=== PATIENT | male | born 1955 | race Caucasian/White ===

== ENCOUNTER 2019-08-20 08:50 | Outpatient (CLI) | payer MEDICARE, OTHER, SELFPAY ==
--- NOTE | 2019-08-20 | IR_ITS ---
WS: [id number] CT LUMBAR SPINE MYELOGRAM TECHNIQUE: CT of the lumbar spine with coronal and sagittal reformatted images with intrathecal contr ast. CLINICAL INFORMATION: Back pain COMPARISON: None. DLP: [address] scans at [facility] use at least one of these dose optimization techniques: automat ed exposure control; mA and/or kV adjustment per patient size (includes targeted exams where dose is matched to clinical indication); or iterative reconstruction. FINDINGS: Mild lumbar curve convex left. Trace retrolisthesis L2 on L3 and L3 on L4. No high-grade central silverio l stenosis. Disc space narrowing worse L5-S1 with vacuum disc phenomenon. L1-L2: Normal. L2-L3: Mild annular bulging with a tiny shallow central protrusion. Slight effacement of ventral thec al sac. Slight narrowing of the left subarticular recess. Foramen are patent. L3-L4: Mild annular bulging. Slight narrowing of the right subarticular recess. Mild facet arthropath y. Spinal canal and foramen are patent. L4-L5: Mild annular bulging eccentric to the right. Slight effacement of the ventral thecal sac. Mild right greater than left foraminal narrowing. Mild facet arthropathy. Spinal canal is patent. L5-S1: Disc desiccation with vacuum disc phenomenon. Mild annular bulging with osteophytic ridging. T iny shallow central protrusion. Mild to moderate left and no significant right foraminal narrowing. M ild facet arthropathy. Aortic calcification. Tortuous and ectatic partially visualized infrarenal abdominal aorta. Suggestio n of a low-attenuation renal lesions nonspecific and only partially visualized on the lumbar spine CT . Recommend further evaluation with CT or ultrasound. IR/IR myelogram [place] lumbar [id number] IMPRESSION: 1. Mild lumbar curve convex left. 2. Mild bilateral L4-5 foraminal narrowing due to eccentric disc bulging and o steophytic ridging. 3. Disc desiccation worse L5-S1 vacuum disc phenomenon. Mild to moderate left foraminal narrowing encroaches on the exiting left L5 nerve root. 4. Shallow central protrusions at L2-L3 and mild annular bulging L3-4 with sli ght narrowing of the left L2-3 and right L3-4 subarticular recess. 5. Mild facet arthropathy L3-L5. 6. Tortuous and partially visualized ectatic infrarenal abdominal aorta. This can be further evaluated with CT abdomen pelvis with contrast or ultrasound. 7. Suggestion of bilateral renal low-attenuation lesions may represent renal c ysts but incompletely visualized. This can also be assessed with CT or ultrasou nd.
[2019-08-20] MEDS: iohexol 240 mg/mL 50 mL Btl INTRATHECA (09:53)
== END 2019-08-20 08:51 | disposition home or self-care (01) ==
PROVIDERS: Family Provider Family Medicine; PCP Family Medicine; Referring Provider Family Medicine; Visit Provider Licensed Practical Nurse
DX: M51.17 Intervertebral disc disorders with radiculopathy, lumbosacral region (principal); M51.26 Other intervertebral disc displacement, lumbar region; I77.811 Abdominal aortic ectasia
CPT/HCPCS: 62304; 72120; 72132; J2001; Q9966

== ENCOUNTER 2019-09-23 09:09 | Outpatient (CLI) | payer MEDICARE, OTHER, SELFPAY ==
--- NOTE | 2019-09-23 09:51 | CT_ITS ---
WS: [id number] CT scan of the abdomen and pelvis without Oral and IV contrast. Additional two-dimensional coronal a nd sagittal reconstruction was performed. 09/23/2019 Clinical Data: CYST OF KIDNEY Comparison: None. DLP: 1137.[address] scans at [facility] use at least one of these dose optimization techniques: automat ed exposure control; mA and/or kV adjustment per patient size (includes targeted exams where dose is matched to clinical indication); or iterative reconstruction. Findings: The kidneys show bilateral multiple simple cysts. The largest right renal cyst is 3.6 cm and the larg est left renal cyst is 3.1 cm. No renal masses, calcifications or hydronephrosis is seen. The lower lungs show no nodules, masses or effusions. The liver, gallbladder, spleen, adrenal glands and pancreas are normal. The abdominal aorta is slightly dilated to 2.7 cm with minimal calcification in the wall. No appendicitis or diverticulitis is seen. No abscess, adenopathy, ascites, mass, obstruction or free air is noted The bladder is unremarkable. No inguinal hernia is seen. Degenerative disc disease at L5-S1 is present. CT/CT abdomen pelvis wo con [id number] Impression: 1. Multiple bilateral simple renal cysts. 2. Atherosclerotic dilatation of the abdominal aorta of 2.7 cm. 3. No acute intra-abdominal or pelvic abnormalities are seen.
== END 2019-09-23 09:10 | disposition home or self-care (01) ==
LOC: RADWPI 09:15
PROVIDERS: Family Provider Family Medicine; PCP Family Medicine; Visit Provider Family Medicine
DX: N28.1 Cyst of kidney, acquired (principal); I70.0 Atherosclerosis of aorta
CPT/HCPCS: 74176

== ENCOUNTER → 2019-10-13 13:54 | Outpatient (BNVA) | payer MEDICARE, OTHER, SELFPAY | PROVIDERS: Family Provider Family Medicine; PCP Family Medicine; Visit Provider Specialist | DX: M25.562 Pain in left knee (principal); M25.561 Pain in right knee | CPT/HCPCS: 73560; 73565 ==

== ENCOUNTER 2019-10-22 05:48 | Day surgery (SDC) | payer MEDICARE, OTHER, SELFPAY ==
[2019-10-19 10:44] VITALS: BMI 36.5
--- NOTE | 2019-10-19 10:59 | ANES.PREANE2 ---
Pre-Anesthetic Assessment Pre-Anesthetic Assessment: Height/Weight: Height 1.93 m Weight 136.078 kg Preop Diagnosis: DJD right knee Proposed Procedure: Operation Date: 10/22/19 07:00 Proposed Procedures p Right Knee Arthroscopy with debridment 89628 M17.11(Right) - Julisa Quick MD Exam: Pre-Anes Outpt Exam: alert, oriented x 3, clear to auscultation bilaterally and regular rate & rhythm Airway: Submandibular: WNL Cervical ROM: WNL MP: 2 Pulmonary: Pulmonary: Sleep apnea Anesthetic Plan: ASA status: 2 PFSH Anesthesia PFSH: Social History Smoking and tobacco status: never smoked Alcohol intake: current Household members: spouse Housing: House Marital status: service: Yes Current occupational status: retired History of recent travel: No Data Anesthesia Cardiac Studies: No Data to Display
[2019-10-22] VITALS (8 sets, daily range): BP systolic 111–140; BP diastolic 61–102; PULSE 63–79; RESP 12–20; TEMP 36.3–36.6; O2SAT 94–98
--- NOTE | 2019-10-22 06:26 | P.ANESUD_ITS ---
Pre-Anesthetic Update Pre-Anesthetic Assessment: Date of Surgery/Procedure: 10/22/19 Preop Nasra gnosis: DJD right knee Proposed Procedure: Operation Date: 10/22/19 07:00 Proposed Procedures p Right Knee Arthroscopy with debridment 38614 M17.11(Right) - Julisa Quick MD Any changes to Pre-Anesthetic Assessment?: No Last Intake: Intake Last Liquid Date 10/21/19 Last Liquid Time 20:30 Last Solid Date 10/21/19 Last Solid Time 20:30 Vitals: Temperature 97.3 F L 10/22/19 06:05 Pulse Rate 67 10/22/19 06:05 Pulse Rhythm 10/22/19 06:13 Pulse Strength 3+ Normal 10/22/19 06:13 Respiratory Rate 18 10/22/19 06:05 Blood Pressure 139/87 10/22/19 06:24 Blood Pressure Bre n 104 10/22/19 06:24 Pulse Oximetry 98 10/22/19 06:05 Oxygen Delivery Me thod 10/22/19 06:13 Exam: Pre-Anes Outpt Exam: alert, oriented x 3, clear to auscultation bi laterally and regular rate & rhythm Other Pertinent Information: Other Pertinent Information: Patient does say he has bradycardia as well Cardiac Studies: No Data to Display
[2019-10-22] MEDS: CELEcoxib 200 mg Capsule 400 MG PO (06:30)
[2019-10-22] MEDS: sodium chloride 0.9% 1,000 ML 30 ML IV (06:36)
--- NOTE | 2019-10-22 06:56 | W.PM.OPSUD ---
Surgery/Procedure H&P Update DATE OF PROCEDURE: October 22, 2019 DATE H&P PERFORMED: 10/13/19 H&P UPDATE INFORMATION: I have reviewed H&P completed within last 30 days, I have examined patient prior to procedure and H&P is in [facility] EMR on date indicated PREOP DIAGNOSIS: DJD right knee PLANNED PROCEDURE: Operation Date: 10/22/19 07:00 Proposed Procedures p Right Knee Arthroscopy with debridment 13996 M17.11(Right) - Julisa Quick MD
[2019-10-22] MEDS: morphine 4 mg/mL SDV 1 mL 8 MG IM (07:47)
--- NOTE | 2019-10-22 08:25 | SUR.PHASEI ---
0822 PT AWAKE ALERT TALKATIVE ON RA TRIAL, PT VERBALLY DENIES PAIN AND NAUSEA, FIRST ICE TO RIGHT KNEE DRESSING D/I DISTAL FOOT PULSE STRONG AND REGULAR FOOT PUMPS ON AND WORKING.
--- NOTE | 2019-10-22 08:48 | P.OP_ITS ---
Operative Report Date of procedure: October 22, 2019 Pre-op Diagnosis: DJD right knee Post-op Diagnosis: Right knee medial and lateral meniscal tears, anterior cruciate ligament tear, degenerative osteoarthritis. Procedure Done: Right arthroscopic knee surgery with partial medial and lateral meniscectomies, resection of anterior cruciate ligament, and chondroplasties of the trochlear groove, medial femoral condyle, and lateral tibial plateau. Specimens removed/disposition: Debris, disposed of Pathology: none sent Surgeon: Julisa Quick Checking Department Supervisor: [facility] OR technicians Anesthesia: General (Intubated) Estimated blood loss (mL): 10 Tourniquet time (min): 35 IV fluids (mL): 1,000 Complications: None Findings: Significant degenerative osteoarthritis with complete anterior cruciate ligament tear. Synovitis. Condition: stable Disposition: same day (PACU then home with family) Brief History: This 63-year-old gentleman presented with complaints of right knee pain and clunking . MRI demonstrated evidence of significant degenerative osteoarthritis and compromise of the anterior cruciate ligament. Additionally, the patient was noted to have degenerative osteoarthritis. He would like to avoid total knee arthroplasty and wished to proceed with arthroscopic intervention to see if we could address the acute symptoms that he was having of late. Procedure: Patient was brought to the operating theater and after undergoing adequate general anesthesia, intubated, the patient's right lower extremity was prepped and draped in usual fashion utilizing DuraPrep. A tourniquet was placed high on the leg prior to prepping and draping. The tourniquet was elevated prior to commencement of the surgical procedure to 250 mmHg. Total tourniquet time was 35 minutes. Elevation followed prepping and exsanguination. Prior to commencement of the surgical procedure, a surgical pause was performed. At the time of the surgical pause, we identified the site and side of surgery. We also confirmed the patient's identity and appropriate and timely administration of preoperative antibiotics. Preoperative surgical markings were also visualized at this time. Standard arthroscopic portals were utilized including superolateral, inferomedial, and inferolateral portals. The examination commenced in the suprapatellar pouch area where the patient was noted to have chondromalacia of the significant degree of the trochlea, and to a lesser degree, on the undersurface of the patella. The arthroscope was then passed in the medial compartment where there was noted to be medial meniscal irregularity consistent with recurrent tear. This was debrided with a combination of the intra- articular shaver as well as the intra-articular heat wand. There was significant synovitis noted in the area of the notch and this was debrided with the shaver. The arthroscope was then passed across the notch area where anterior cruciate ligament was visualized and found to be incompetent and essentially completely torn. This was debrided. The scope was passed into the lateral compartment with the knee in a [id number] position. Lateral meniscus was noted to have interim degenerative tearing. This was addressed with a combination of the intra-articular heat wand as well as the shaver. We also used a basket forceps. The meniscus was balanced and there was no further evidence of tear. Once lateral meniscus had been thus prepared it was palpated and found to be intact and not displaceable into the knee joint. Scope was then returned to the medial compartment where the compartment was again evaluated. Chondroplasties were performed both of the medial femoral condyle and lateral tibial plateau. The meniscus was palpated and found to be not displaceable into the knee joint. The arthroscope was then returned to the patellofemoral joint where a chondroplasty was performed of the undersurface of the patella and to a more significant degree of the trochlea. This chondroplasty involved use of the intra-articular shaver as well as the heat wand. Once the patella had been addressed, the scope was passed back through the knee compartments to evaluate for other abnormalities. Finding none, attention was directed to closure. The knee was copiously irrigated and suctioned dry. Following this, each portal was closed with a simple suture followed by Dermabond and Tegaderm. Additionally, the knee was injected with 20 mL of half percent ropivacaine and 8 mg of morphine. Additional 10 mL of ropivacaine was placed about the portals. Sterile dressing was placed consisting of the soft roll followed by the Cecilio wrap. Patient was returned to Recovery Room in satisfactory condition where he will be discharged home to follow-up with me in the office as scheduled. There were no complications and no specimens.
== END 2019-10-22 09:20 | disposition home or self-care (01) ==
PROVIDERS: Family Provider Family Medicine; PCP Family Medicine; Visit Provider Specialist
PROC: (CPT 29870; principal; 2019-10-22 07:00)
DX: M17.11 Unilateral primary osteoarthritis, right knee (principal); S83.281A Other tear of lateral meniscus, current injury, right knee, initial encounter; S83.241A Other tear of medial meniscus, current injury, right knee, initial encounter; S83.511A Sprain of anterior cruciate ligament of right knee, initial encounter; X58.XXXA Exposure to other specified factors, initial encounter; F17.210 Nicotine dependence, cigarettes, uncomplicated
CPT/HCPCS: 29880; 12345; 96365; J0131; J0330; J0690; J1100; J1885; J2001; J2270; J2405; J2704; J2795; J3010; J3490; J7030

== ENCOUNTER 2020-03-21 12:37 | Outpatient (CLI) | payer MEDICARE, OTHER, SELFPAY ==
--- NOTE | 2020-03-21 12:46 | CT_ITS ---
WS: [id number] CTA HEAD TECHNIQUE: Contrast enhanced CTA of the head with coronal and sagittal reformatted images and maximum intensity projection (MIP) images. NASCET criteria utilized. CLINICAL INFORMATION: AVM (ARTERIOVENOUS MALFORMATION) BRAIN COMPARISON: CTA 8 26,019 and MRI 7 10,019, 3 14,006, and 6 28,002. DLP: 1598.[address] scans at [facility] use at least one of these dose optimization techniques: automat ed exposure control; mA and/or kV adjustment per patient size (includes targeted exams where dose is matched to clinical indication); or iterative reconstruction. FINDINGS: Again seen is the chronic calcified lesion in the right parietal subcortical white matter l ikely represents chronic calcified vascular malformation either cavernoma or AVM. This measures 0.9 x 0.7 CM. This is unchanged appearance since 2019. No abnormal enhancement or prominent feeding vessel s. No evidence of new or recent hemorrhage. No surrounding edema. 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 INTRACRANIAL CTA: Distal left vertebral artery is patent. Basilar artery is patent. Normal vascularity to the [employer] royal tory bilaterally. Both ICAs are patent at the skull base. Normal vascularity to the ISAURA and MCA territories bilaterally . No evidence of high-grade proximal stenosis or aneurysm. Hypoplastic right A1. Incidental cavum sep mona pellucidum and vergae. CT/CT angio head [id number] IMPRESSION: 1. Stable calcified vascular malformation right parietal white matter. No evid ence of recent hemorrhage or enhancement. No significant changes. 2. 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 This is unchanged. 3. Unremarkable intracranial CTA. No flow-limiting stenosis. 4. Hypoplastic right A1. 5. Left dominant vertebral artery.
[2020-03-21] MEDS: iohexol 350 mg/mL 100 mL Btl IV (13:29)
== END 2020-03-21 12:38 | disposition home or self-care (01) ==
LOC: RADWPI 12:42
PROVIDERS: Family Provider Family Medicine; PCP Family Medicine; Visit Provider Licensed Practical Nurse
DX: Q28.2 Arteriovenous malformation of cerebral vessels (principal); Q28.3 Other malformations of cerebral vessels
CPT/HCPCS: 70496; Q9967

== ENCOUNTER → 2020-03-29 10:01 | Outpatient (BNVA) | payer MEDICARE, OTHER, SELFPAY | PROVIDERS: Family Provider Family Medicine; PCP Family Medicine; Visit Provider Licensed Practical Nurse | DX: Q28.2 Arteriovenous malformation of cerebral vessels (principal) | CPT/HCPCS: 99213 ==

== ENCOUNTER 2020-05-30 09:38 | Outpatient (CLI) | payer MEDICARE, OTHER, SELFPAY ==
--- NOTE | 2020-05-30 08:45 | US_ITS ---
WS: [id number] RENAL ULTRASOUND HISTORY: Renal cysts. COMPARISON: 09/23/2019 TECHNIQUE: 2-D and color Doppler imaging of the kidney submitted. Right kidney: 14.8 cm x 6.3 cm x 5.6 cm. Kidney is enlarged with multiple cysts. No solid masses. No obstruction. The largest cysts measure ab out 4.3 x 3.5 x 4.2 cm from the lower pole. Left kidney: 13.8 cm x 5.8 cm x 7.0 cm. Mildly enlarged kidney with multiple cortical cysts. Largest cyst from the superior pole measures 3.3 x 3.0 x 3.6 cm. No solid mass. Aorta: Mildly ectatic and aneurysmal dilatation of aorta at 3.9 cm. Urinary Bladder: Normal distention. US/US renal BI* [id number] IMPRESSION: 1. No renal obstruction. 2. Acquired bilateral renal cysts. No solid mass. 3. Mild aneurysmal dilatation aorta. Maximum diameter 3.9 cm.
== END 2020-05-30 09:39 | disposition home or self-care (01) ==
LOC: RAD 09:42
PROVIDERS: PCP Family Medicine; Visit Provider Urology
DX: N28.1 Cyst of kidney, acquired (principal); I71.9 Aortic aneurysm of unspecified site, without rupture
CPT/HCPCS: 76770; 81001

== ENCOUNTER 2020-12-25 10:13 | Outpatient (CLI) | payer MEDICARE, OTHER, SELFPAY ==
--- NOTE | 2020-12-25 10:23 | USCV_ITS ---
Jimenez Clements Age: 65 Gender: M : 1955 Exam Date: 12/25/2020 10:45 Ordering Phys: Chauncey Martinez MD (Andy) ([email or web address] [place] Technologist: Jordyn Garcia [place] [facility] [place]: KNOWN AAA. NO SX HISTORY: Diameter (cm) AP x Transverse x Length Velocity (cm/s) Waveform Prox Aorta: 2.84 x 2.67 x 36.40 Mid Aorta: 2.82 x 2.71 x 58.50 Distal Aorta: 3.07 x 3.24 x 8.18 68.00 Right Iliac Prox: 0.97 x 0.86 x 90.90 Left Iliac Prox: 1.00 x 0.97 x 76.80 Stent Prox Landing x x Aneurysmal Sac Max x x Lt Lat Sac Dim Rt Lat Sac Dim Stent Dist Landing x x Right Iliac Stent x x Left Iliac Stent x x Right Renal Art Left Renal Art FINDINGS: Aneurysmal dilatation in the infrarenal aorta with thrombus formation Normal Doppler flow velocities in the aorta and the proximal common iliac arteries Normal proximal common iliac artery dimensions CONCLUSIONS 1. 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 2. Organized thrombus in the lumen of the aneurysm 3. Normal proximal common iliac artery dimensions with no evidence of aneurysm 4. No evidence of stenosis in the aorta or in the common iliac arteries No similar previous studies are available for comparison Dr Ranjan Damon MD [facility] (Electronically Signed) Final Date: 26 Dec 2020 09:41 S
== END 2020-12-25 10:14 | disposition home or self-care (01) ==
LOC: RAD 10:21
PROVIDERS: Visit Provider Thoracic Surgery (Cardiothoracic Vascular Surgery)
DX: I71.4 Abdominal aortic aneurysm, without rupture (principal)
CPT/HCPCS: 93978

== ENCOUNTER 2021-02-22 13:34 | Outpatient (CLI) | payer MEDICARE, OTHER, SELFPAY ==
--- NOTE | 2021-02-22 13:39 | XR_ITS ---
WS: [id number] SCREENING DEXA SCAN [employer] CLINICAL INFORMATION: AGE-RELATED OSTEOPOROSIS WITHOUT CURRENT PATHOLOGICAL FRACTU COMPARISON: None. FINDINGS: The L1-L4 bone mineral density measures 1.088 g/cm2. This corresponds to a T score score of -1.1 and Z score of -1.4. Left femoral neck bone mineral density measures 1.054 g/cm2. This corresponds to a T score of -0.3 an d Z score of -0.3. Right femoral neck bone mineral density measures 1.081 g/cm2. This corresponds to a T score -0.1of an d Z score of -0.1. Mean femoral neck bone mineral density measures 1.067 g/cm2. This corresponds to a T score of -0.2 an d Z score of -0.2. XR/XR DEXA axial skeleton* [id number] IMPRESSION: Osteopenia lumbar spine at the lower end of the range. Normal bone mineralizati on femoral necks. Patient's FRAX calculated 10 year probability for major osteoporotic fracture i s 4.9 % and osteoporotic hip fracture is 0.5%.
== END 2021-02-22 13:35 | disposition home or self-care (01) ==
LOC: RADWPI 13:38
PROVIDERS: Visit Provider Nurse Practitioner Family
DX: M81.0 Age-related osteoporosis without current pathological fracture (principal); M85.88 Other specified disorders of bone density and structure, other site
CPT/HCPCS: 77080

== ENCOUNTER → 2025-05-19 14:15 | Outpatient (BNVA) | payer MEDICARE, OTHER, SELFPAY | PROVIDERS: Visit Provider Dermatology | DX: L28.1 Prurigo nodularis (principal); L73.9 Follicular disorder, unspecified; L21.8 Other seborrheic dermatitis; L72.0 Epidermal cyst; D69.2 Other nonthrombocytopenic purpura | CPT/HCPCS: 99204 ==